=== PATIENT | female | born 1960 | race Caucasian/White ===

== ENCOUNTER 2016-07-17 11:47 | Emergency (ER) | payer SELFPAY ==
[2016-07-17] MEDS ORDERED: Aspirin 325 MG TAB ONE (12:49)
--- NOTE | 2016-07-17 12:56 | RAD ---
CHEST ONE VIEW: History: Chest pain. Comparison: 05-29-15 FINDINGS: Lungs are clear. No pneumothorax or effusion. Cardiac silhouette and mediastinal contours are normal . No acute osseous abnormality. IMPRESSION: No acute cardiopulmonary process. POS: [facility]
[2016-07-17 13:01] LABS: #Basophils 0.1 thou/uL (0.0-0.2); #Eosinphils 0.1 thou/uL (0.0-0.7); #Lymphocytes 2.4 thou/uL (1.20-3.40); #Monocytes 0.4 thou/uL (0.11-0.59); #Neutrophils 3.7 thou/uL (1.40-6.50); %Basophils 1.5 % (0.0-1.0); %Eosinophils 2.1 % (0.0-10.0); %Lymphocytes 35.7 % (21.0-51.0); %Monocytes 5.7 % (0.0-10.0); %Neutrophils 54.9 % (42.0-75.0); Hemoglobin 14.5 g/dL (12.0-16.0); Mean Corpuscular HGB CONC 32.2 g/dL (32.0-36.0); Mean Corpuscular Hemoglobin 29.2 pg (27.0-31.0); Mean Corpuscular Volume 90.7 fl (81.0-99.0); Mean Platelet Volume 12.1 fL (7.4-10.4); Platelet Count 95 thou/uL (130-400); RBC Distribution Width 12.7 % (11.5-14.5); Red Blood Cell (RBC) Count 4.95 mill/uL (4.20-5.40); White Blood Cell (WBC) Count 6.8 thou/uL (4.8-10.8)
[2016-07-17 13:04] LABS: PTT 34.5 SEC (22.9-36.1); Prothrombin Time 13.7 SEC (12.0-14.7)
[2016-07-17 13:05] LABS: D-Dimer Test 0.33 *mcg/mL (0.27-0.43)
[2016-07-17 13:12] LABS: CKMB 0.6 ng/mL (0-6.6); Troponin I Less than 0.010 ng/mL (< 0.028)
[2016-07-17 13:26] LABS: PLT Morphology Comment Appears Decreased
[2016-07-17 13:33] LABS: Anion Gap 20 mmol/L (10-20); BUN (Urea Nitrogen) 12 mg/dL (9.8-20.1); Calc. Creatinine Clearance 0 mL/min (70-130); Calcium 9.4 mg/dL (7.8-10.44); Carbon Dioxide 22 mmol/L (22-29); Chloride 102 mmol/L (98-107); Estimated GFR-MDRD 69; Glucose 100 mg/dL (70-105); Potassium 3.9 mmol/L (3.5-5.1); Sodium 140 mmol/L (136-145)
== END 2016-07-17 14:22 | disposition short-term general hospital (02) ==
LOC: MADERS 11:47
DX: R07.9 Chest pain, unspecified (principal); K21.9 Gastro-esophageal reflux disease without esophagitis; F41.9 Anxiety disorder, unspecified; F32.9 Major depressive disorder, single episode, unspecified; Z79.899 Other long term (current) drug therapy
CPT/HCPCS: 71010; 80048; 82553; 83880; 84484; 85025; 85379; 85610; 85730; 93005

== ENCOUNTER 2017-05-17 09:25 | Emergency (ER) | payer OTHER, SELFPAY ==
--- NOTE | 2017-05-17 10:13 | RAD ---
3 VIEW LEFT ANKLE SERIES: Date: 05/17/17 INDICATION: Fall with ankle pain, injury. FINDINGS: Soft tissue swelling is present. There is a minimally displaced fibular tip fracture. Mortise is inta ct. There is scattered osseous degenerative change. IMPRESSION: 1. Minimal displaced distal fibular fracture. 2. Associated soft tissue swelling is present. POS: [facility]
== END 2017-05-17 10:20 | disposition home or self-care (01) ==
LOC: MADERS 09:25
DX: S82.832A Other fracture of upper and lower end of left fibula, initial encounter for closed fracture (principal); I49.9 Cardiac arrhythmia, unspecified; I44.7 Left bundle-branch block, unspecified; I25.2 Old myocardial infarction; K21.9 Gastro-esophageal reflux disease without esophagitis; F41.9 Anxiety disorder, unspecified; F32.9 Major depressive disorder, single episode, unspecified; Z79.82 Long term (current) use of aspirin; Z79.899 Other long term (current) drug therapy; W17.2XXA Fall into hole, initial encounter

== ENCOUNTER 2017-08-20 10:41 | Emergency (ER) | payer SELFPAY ==
[~2017-08-20 10:41] MED LIST: Sodium Chloride 0.9% 1,000 ML BAG ONE
[2017-08-20 11:41] LABS: #Basophils 0.1 thou/uL (0.0-0.2); #Eosinphils 0.1 thou/uL (0.0-0.7); #Lymphocytes 1.6 thou/uL (1.20-3.40); #Monocytes 0.3 thou/uL (0.11-0.59); #Neutrophils 3.7 thou/uL (1.40-6.50); %Basophils 0.9 % (0.0-1.0); %Eosinophils 2.2 % (0.0-10.0); %Lymphocytes 27.6 % (21.0-51.0); %Monocytes 5.5 % (0.0-10.0); %Neutrophils 63.7 % (42.0-75.0); Hemoglobin 11.9 g/dL (12.0-16.0); Mean Corpuscular HGB CONC 32.5 g/dL (32.0-36.0); Mean Corpuscular Hemoglobin 30.1 pg (27.0-31.0); Mean Corpuscular Volume 92.8 fL (78.0-98.0); Mean Platelet Volume 7.2 fL (7.4-10.4); Platelet Count 153 thou/uL (130-400); RBC Distribution Width 12.1 % (11.5-14.5); Red Blood Cell (RBC) Count 3.94 mill/uL (4.20-5.40); White Blood Cell (WBC) Count 5.8 thou/uL (4.8-10.8)
[2017-08-20 11:44] LABS: INR-International Normal Ratio 0.9; PTT 23.5 SEC (22.9-36.1); Prothrombin Time 12.6 SEC (12.0-14.7)
[2017-08-20 11:54] LABS: ALT (SGPT) 16 U/L (8-55); AST (SGOT) 13 U/L (5-34); Albumin 4.1 g/dL (3.5-5.0); Alkaline Phosphatase 56 U/L (40-150); Anion Gap 17 mmol/L (10-20); BUN (Urea Nitrogen) 19 mg/dL (9.8-20.1); Bilirubin, Total 0.3 mg/dL (0.2-1.2); CK (CPK) 42 U/L (29-168); Calc. Creatinine Clearance 0 mL/min (70-130); Calcium 9.1 mg/dL (7.8-10.44); Carbon Dioxide 22 mmol/L (22-29); Chloride 104 mmol/L (98-107); Estimated GFR-MDRD 73; Globulin 2.6 g/dL (2.4-3.5); Glucose 101 mg/dL (70-105); Potassium 4.2 mmol/L (3.5-5.1); Protein, Total 6.7 g/dL (6.0-8.3); Sodium 139 mmol/L (136-145)
[2017-08-20 11:58] LABS: CKMB 0.5 ng/mL (0-6.6); Troponin I Less than 0.010 ng/mL (< 0.028)
[2017-08-20] MEDS ORDERED: Meclizine HCl 25 MG TAB ONE (12:45)
[2017-08-20] MEDS ORDERED: Ondansetron ODT 4 MG TAB ONE (12:45)
--- NOTE | 2017-08-20 13:21 | RAD ---
AP VIEW OF THE CHEST: INDICATION: History of irregular heartbeat. IMPRESSION: No acute cardiopulmonary abnormality. The examination is not appreciably changed from a comparison d ated 07/17/16. POS: [facility]
--- NOTE | 2017-08-20 14:16 | CT ---
BRAIN CT WITHOUT IV CONTRAST: HISTORY: A 57-year-old female with a history of dizziness for one month with headache. COMPARISON: 05/31/2013 FINDINGS: No focal mass or midline shift. No intraaxial or extraaxial hemorrhage. The sinuses and mastoids ar e clear of acute process. Stable from prior study. IMPRESSION: 1. No significant acute intracranial process. 2. No mass or bleed. 3. Mild atrophy. POS: [facility]
== END 2017-08-20 14:40 | disposition home or self-care (01) ==
LOC: MADERS 10:41
DX: H83.09 Labyrinthitis, unspecified ear (principal); I47.1 Supraventricular tachycardia; I25.10 Atherosclerotic heart disease of native coronary artery without angina pectoris; K21.9 Gastro-esophageal reflux disease without esophagitis; F41.9 Anxiety disorder, unspecified; F32.9 Major depressive disorder, single episode, unspecified; Z79.899 Other long term (current) drug therapy; Z79.1 Long term (current) use of non-steroidal anti-inflammatories (NSAID)
CPT/HCPCS: 36415; 70450; 71045; 80053; 82550; 82553; 83880; 84443; 84484; 85025; 85610; 85730; 93005; 96360; 96361; J7050; Q0162

== ENCOUNTER 2018-02-10 13:34 | Outpatient (CLI) | payer OTHER ==
--- NOTE | 2018-02-10 15:06 | RAD ---
RIGHT KNEE THREE VIEWS: History: Knee pain. FINDINGS: Medial and lateral joint spaces are preserved. There are very mild degenerative changes apparent with minimal spurring from the tibial spines, condyles, and patella. I cannot exclude small joint effusio n with mild fullness seen in the suprapatellar region. IMPRESSION: Very mild degenerative change. Question small joint effusion. POS: [facility]
--- NOTE | 2018-02-10 15:07 | RAD ---
LEFT KNEE THREE VIEWS: History: Knee pain. FINDINGS: Joint spaces are preserved. Mild degenerative changes are noted. Mild spurring from the tibial condyl es. Fullness of the suprapatellar regions suggest small effusion. No fracture or acute abnormality. IMPRESSION: Evidence of mild degenerative change. Question small joint effusion. POS: [facility]
--- NOTE | 2018-02-10 15:54 | RAD ---
FIVE VIEWS LUMBAR SPINE: History: Back pain without history of trauma. FINDINGS: AP, lateral, coned down, flexion and extension views lumbar spine obtained. Images demonstrate 4.5 mm of anterolisthesis of L4 on L5. This does not significantly change on flexi on or extension views. No evidence of acute lumbar spine fractures seen. Disc spaces are well maintained. IMPRESSION: Grade I anterolisthesis of L4 on L5. No acute fractures or bony lesions seen. POS: [facility]
== END 2018-02-10 13:35 | disposition home or self-care (01) ==
LOC: MADRAD 13:34
PROVIDERS: ATTEND Nurse Practitioner Family
DX: M54.5 Low back pain (principal); M25.561 Pain in right knee; M25.562 Pain in left knee; M43.16 Spondylolisthesis, lumbar region; M17.0 Bilateral primary osteoarthritis of knee
CPT/HCPCS: 72110

== ENCOUNTER 2018-04-24 08:22 | Emergency (ER) | payer OTHER ==
[2018-04-24] MEDS ORDERED: Ibuprofen 800 MG TAB ONE (08:53)
[2018-04-24] MEDS ORDERED: Oseltamivir 75 MG CAP ONE (08:53)
--- NOTE | 2018-04-24 09:51 | RAD ---
2 VIEW CHEST: Date: 04/24/18 HISTORY: Fever. COMPARISON: 06/25/14. FINDINGS: The lung erazo appear clear. No infiltrate identified. Heart and mediastinum unremarkable. Vasculatu re normal. IMPRESSION: No acute findings. POS: [facility]
== END 2018-04-24 09:30 | disposition home or self-care (01) ==
LOC: MADERS 08:22
DX: J11.1 Influenza due to unidentified influenza virus with other respiratory manifestations (principal); I47.1 Supraventricular tachycardia; I25.10 Atherosclerotic heart disease of native coronary artery without angina pectoris; K21.9 Gastro-esophageal reflux disease without esophagitis; F41.9 Anxiety disorder, unspecified; Z79.1 Long term (current) use of non-steroidal anti-inflammatories (NSAID); Z79.899 Other long term (current) drug therapy; Z79.51 Long term (current) use of inhaled steroids
CPT/HCPCS: 71046; 93005

== ENCOUNTER 2019-01-08 14:41 | Emergency (ER) | payer OTHER ==
[2019-01-08 15:46] LABS: #Basophils 0.1 thou/uL (0.0-0.2); #Eosinphils 0.2 thou/uL (0.0-0.7); #Lymphocytes 1.7 thou/uL (1.20-3.40); #Monocytes 0.4 thou/uL (0.11-0.59); #Neutrophils 3.6 thou/uL (1.40-6.50); %Basophils 1.6 % (0.0-1.0); %Eosinophils 2.8 % (0.0-10.0); %Monocytes 6.2 % (0.0-10.0); %Neutrophils 60.5 % (42.0-75.0); Hemoglobin 12.1 g/dL (12.0-16.0); Mean Corpuscular HGB CONC 30.7 g/dL (32.0-36.0); Mean Corpuscular Hemoglobin 27.8 pg (27.0-31.0); Mean Corpuscular Volume 90.6 fL (78.0-98.0); Mean Platelet Volume 8.3 fL (7.4-10.4); Platelet Count 202 thou/uL (130-400); RBC Distribution Width 12.6 % (11.5-14.5); Red Blood Cell (RBC) Count 4.36 mill/uL (4.20-5.40); White Blood Cell (WBC) Count 5.9 thou/uL (4.8-10.8)
[2019-01-08 16:00] LABS: ALT (SGPT) 32 U/L (8-55); AST (SGOT) 22 U/L (5-34); Albumin 4.2 g/dL (3.5-5.0); Alkaline Phosphatase 104 U/L (40-110); Anion Gap 15 mmol/L (10-20); BUN (Urea Nitrogen) 11 mg/dL (9.8-20.1); Bilirubin, Total 0.5 mg/dL (0.2-1.2); Calc. Creatinine Clearance 0 mL/min (70-130); Calcium 9.3 mg/dL (7.8-10.44); Carbon Dioxide 29 mmol/L (22-29); Chloride 102 mmol/L (98-107); Estimated GFR-MDRD 63; Globulin 2.7 g/dL (2.4-3.5); Glucose 102 mg/dL (70-105); Protein, Total 6.9 g/dL (6.0-8.3); Sodium 143 mmol/L (136-145)
[2019-01-08 16:01] LABS: Potassium 2.9 mmol/L (3.5-5.1)
[2019-01-08] MEDS ORDERED: Aspirin Chewable 81 MG TAB ONE (16:02)
[2019-01-08] MEDS ORDERED: Potassium Chloride 20 MEQ TAB ONE (16:06)
--- NOTE | 2019-01-08 16:44 | RAD ---
RADIOGRAPH CHEST 2 VIEWS: DATE: 01/08/2019 HISTORY: 58-year-old female with dyspnea FINDINGS: There is no airspace density, pulmonary edema, pleural effusion, pneumothorax, or cardiomegaly. IMPRESSION: No acute cardiopulmonary findings.
== END 2019-01-08 17:04 | disposition home or self-care (01) ==
LOC: MADERS 14:41
DX: E87.6 Hypokalemia (principal); R06.00 Dyspnea, unspecified; I25.10 Atherosclerotic heart disease of native coronary artery without angina pectoris; I49.9 Cardiac arrhythmia, unspecified; I47.1 Supraventricular tachycardia; F41.9 Anxiety disorder, unspecified; F32.9 Major depressive disorder, single episode, unspecified; Z79.899 Other long term (current) drug therapy; Z79.51 Long term (current) use of inhaled steroids; Z79.82 Long term (current) use of aspirin
CPT/HCPCS: 71046; 80053; 84484; 85025; 93005

== ENCOUNTER 2019-06-23 10:00 | Emergency (ER) | payer OTHER ==
[2019-06-23 11:12] LABS: #Basophils 0.1 thou/uL (0.0-0.2); #Eosinphils 0.3 thou/uL (0.0-0.7); #Lymphocytes 1.3 thou/uL (1.20-3.40); #Monocytes 0.5 thou/uL (0.11-0.59); #Neutrophils 5.8 thou/uL (1.40-6.50); %Basophils 1.2 % (0.0-1.0); %Eosinophils 3.3 % (0.0-10.0); %Lymphocytes 16.5 % (21.0-51.0); %Monocytes 5.7 % (0.0-10.0); %Neutrophils 73.3 % (42.0-75.0); Hemoglobin 12.1 g/dL (12.0-16.0); Mean Corpuscular Hemoglobin 29.5 pg (27.0-31.0); Platelet Count 242 thou/uL (130-400); RBC Distribution Width 13.5 % (11.5-14.5); Red Blood Cell (RBC) Count 4.11 mill/uL (4.20-5.40); White Blood Cell (WBC) Count 7.9 thou/uL (4.8-10.8)
[2019-06-23] MEDS ORDERED: Aspirin Chewable 81 MG TAB ONE (11:12)
--- NOTE | 2019-06-23 11:18 | RAD ---
RADIOGRAPH CHEST 1 VIEW: DATE: 06/23/2019 HISTORY: 59-year-old female with chest pain and palpitations FINDINGS: There are no airspace densities, pulmonary edema, pneumothorax, or cardiomegaly. The lateral costophr enic angles are sharp. IMPRESSION: No acute cardiopulmonary findings.
[2019-06-23 11:30] LABS: ALT (SGPT) 172 U/L (8-55); AST (SGOT) 112 U/L (5-34); Albumin 4.1 g/dL (3.5-5.0); Alkaline Phosphatase 185 U/L (40-110); Anion Gap 16 mmol/L (10-20); BUN (Urea Nitrogen) 16 mg/dL (9.8-20.1); Bilirubin, Total 0.4 mg/dL (0.2-1.2); Calc. Creatinine Clearance 0 mL/min (70-130); Calcium 8.8 mg/dL (7.8-10.44); Carbon Dioxide 26 mmol/L (22-29); Chloride 101 mmol/L (98-107); Estimated GFR-MDRD 52; Glucose 154 mg/dL (70-105); Magnesium 1.3 mg/dL (1.6-2.6); Potassium 3.7 mmol/L (3.5-5.1); Protein, Total 7.1 g/dL (6.0-8.3); Sodium 139 mmol/L (136-145)
[2019-06-23] MEDS ORDERED: Magnesium 2 GM/50 ML BAG (IN WATER) ONE (11:56)
[2019-06-23 23:48] LABS: HBCM Index 0.16 S/CO (0-0.79); HBSAg Index 0.15 S/CO (0-0.99); Hep A IgM AB Non-Reactive (NonReactive); Hep B Surf Ag Non-Reactive S/CO (NonReactive); Hep C IgG Ab Non-Reactive (NonReactive); Hep C Index 0.16 S/CO (0-0.79); Hepatitis B Core IgM Abs Non-Reactive (NonReactive)
== END 2019-06-23 13:11 | disposition short-term general hospital (02) ==
LOC: MADERS 10:00
DX: K75.9 Inflammatory liver disease, unspecified (principal); E83.42 Hypomagnesemia; I25.10 Atherosclerotic heart disease of native coronary artery without angina pectoris; K21.9 Gastro-esophageal reflux disease without esophagitis
CPT/HCPCS: 71045; 80053; 80074; 83690; 83735; 83880; 84443; 84484; 85025; 93005; 96365; J3475

== ENCOUNTER 2019-10-02 14:05 | Emergency (ER) | payer OTHER ==
[2019-10-02] MEDS ORDERED: Diazepam 5 MG TAB ONE (14:55)
[2019-10-02] MEDS ORDERED: HYDROcodone/Acetaminophen 5/325 mg Tablet ONE (14:55)
[2019-10-02] MEDS ORDERED: Ketorolac Tromethamine 60 MG/2 ML VIAL ONE (14:56)
== END 2019-10-02 15:19 | disposition home or self-care (01) ==
LOC: MADERS 14:05
DX: M54.42 Lumbago with sciatica, left side (principal); I25.10 Atherosclerotic heart disease of native coronary artery without angina pectoris; K21.9 Gastro-esophageal reflux disease without esophagitis; F32.9 Major depressive disorder, single episode, unspecified; F41.9 Anxiety disorder, unspecified; Z79.899 Other long term (current) drug therapy; Z79.82 Long term (current) use of aspirin
CPT/HCPCS: 96372; 99283; J1885

== ENCOUNTER 2023-04-24 11:01 | Emergency (ER) | payer OTHER ==
[~2023-04-24 11:01] MED LIST changes: +Iopamidol 370 76% 100 ML VIAL ONE; -Sodium Chloride 0.9% 1,000 ML BAG ONE
[2023-04-24] MEDS ORDERED: Ondansetron PF 4 MG/2 ML Vial ONE (11:31)
[2023-04-24] MEDS ORDERED: Pantoprazole 40 MG VIAL ONE (11:32)
[2023-04-24] MEDS ORDERED: Sodium Chloride 0.9% 1,000 ML ONE ×2 (11:32→14:02)
[2023-04-24 12:13] LABS: ALT (SGPT) 34 U/L (8-55); AST (SGOT) 22 U/L (5-34); Albumin 4.5 g/dL (3.4-4.8); Alkaline Phosphatase 176 U/L (40-110); Anion Gap 21 mmol/L (10-20); BUN (Urea Nitrogen) 14 mg/dL (9.8-20.1); Bilirubin, Total 0.4 mg/dL (0.2-1.2); Calc. Creatinine Clearance 0 mL/min (70-130); Calcium 9.4 mg/dL (7.8-10.44); Carbon Dioxide 18 mmol/L (23-31); Chloride 109 mmol/L (98-107); Estimated GFR 56; Globulin 3.1 g/dL (2.4-3.5); Glucose 135 mg/dL (80-115); Lipase 13 U/L (8-78); Potassium 3.5 mmol/L (3.5-5.1); Protein, Total 7.6 g/dL (5.8-8.1); Sodium 144 mmol/L (136-145)
[2023-04-24 12:15] LABS: Band 17 % (5-11); Hematocrit 37.9 % (36.0-47.0); Hemoglobin 12.1 g/dL (12.0-16.0); Hypochromia SLIGHT = 6-15 cells (100X) (0-5/hpf); Lymphocytes 7 % (21-51); MDiff Complete? YES; Mean Corpuscular HGB CONC 31.9 g/dL (32.0-36.0); Mean Corpuscular Hemoglobin 28.6 pg (27.0-31.0); Mean Corpuscular Volume 89.6 fl (78.0-98.0); Mean Platelet Volume 7.9 fL (7.4-10.4); Monocytes 2 % (0-10); Neutrophil 74 % (42-75); Platelet Adequacy Comment Appears Adequate; Platelet Count 268 10x3/uL (130-400); RBC Distribution Width 14.2 % (11.5-14.5); Red Blood Cell (RBC) Count 4.24 mill/uL (4.20-5.40); White Blood Cell (WBC) Count 15.3 10x3/uL (4.8-10.8)
[2023-04-24] MEDS ORDERED: Cefepime 2 GM VIAL ONE (14:41)
[2023-04-24] MEDS ORDERED: Sodium Chloride 0.9% 100 ML ONE (14:41)
[2023-04-24] MEDS ORDERED: metroNIDAZOLE 500 MG (100 mL) BAG ONE (15:08)
[2023-04-24 15:24] LABS: Influenza A by NAA Not Detected (NotDetected); Influenza B by NAA Not Detected (NotDetected); SARS-CoV-2 NAA Rapid Test Not Detected (NotDetected)
[2023-04-24] MEDS ORDERED: Vancomycin 1 GM VIAL ONE (16:20)
[2023-04-24] MEDS ORDERED: Sodium Chloride 0.9% 500 ML ONE (16:20)
[2023-04-24 17:03] LABS: Hemoglobin A1c 5.1 % (4.0-6.0)
== END 2023-04-24 17:44 | disposition short-term general hospital (02) ==
LOC: MADERS 11:01
DX: A09 Infectious gastroenteritis and colitis, unspecified (principal); K20.90 Esophagitis, unspecified without bleeding; I11.0 Hypertensive heart disease with heart failure; I50.9 Heart failure, unspecified; I48.91 Unspecified atrial fibrillation; I25.10 Atherosclerotic heart disease of native coronary artery without angina pectoris; Z79.899 Other long term (current) drug therapy
CPT/HCPCS: 36415; 74177; 80053; 83036; 83605; 83690; 85025; 87040; 96361; 96365; 96367; 96375; C9113; J0692; J2405; J3370; J3490; J7030; J7050; Q9967

== ENCOUNTER 2023-06-24 20:43 | Emergency (ER) | payer OTHER ==
[~2023-06-24 20:43] MED LIST changes: +Sodium Chloride 0.9% 100 ML BAG ONE
[2023-06-24] MEDS ORDERED: Acetaminophen 500 MG TAB ONE (20:55)
[2023-06-24 21:46] LABS: Hematocrit 27.4 % (36.0-47.0); Hemoglobin 8.9 g/dL (12.0-16.0); Lymphocytes 10 % (21-51); MDiff Complete? YES; Mean Corpuscular HGB CONC 32.5 g/dL (32.0-36.0); Mean Corpuscular Hemoglobin 29.1 pg (27.0-31.0); Mean Corpuscular Volume 89.5 fl (78.0-98.0); Mean Platelet Volume 6.9 fL (7.4-10.4); Monocytes 11 % (0-10); Neutrophil 79 % (42-75); Platelet Count 140 10x3/uL (130-400); Red Blood Cell (RBC) Count 3.07 mill/uL (4.20-5.40); White Blood Cell (WBC) Count 4.8 10x3/uL (4.8-10.8)
[2023-06-24 21:47] LABS: Influenza A by NAA Not Detected (NotDetected); Influenza B by NAA Not Detected (NotDetected); SARS-CoV-2 NAA Rapid Test Not Detected (NotDetected)
[2023-06-24 21:57] LABS: ALT (SGPT) 21 U/L (8-55); AST (SGOT) 21 U/L (5-34); Albumin 3.4 g/dL (3.4-4.8); Alkaline Phosphatase 103 U/L (40-110); Anion Gap 14 mmol/L (10-20); BUN (Urea Nitrogen) 9 mg/dL (9.8-20.1); Bilirubin, Total 0.4 mg/dL (0.2-1.2); Calc. Creatinine Clearance 0 mL/min (70-130); Carbon Dioxide 24 mmol/L (23-31); Chloride 104 mmol/L (98-107); Estimated GFR 56; Globulin 2.3 g/dL (2.4-3.5); Glucose 105 mg/dL (80-115); Lipase 11 U/L (8-78); Protein, Total 5.7 g/dL (5.8-8.1); Sodium 140 mmol/L (136-145)
[2023-06-24 22:01] LABS: Calcium 6.9 mg/dL (7.8-10.44); Critical Call Chemistry EMS.CLJ @ 2200; Magnesium 0.7 mg/dL (1.6-2.6); Potassium 2.1 mmol/L (3.5-5.1)
[2023-06-24] MEDS ORDERED: Magnesium 2 GM/50 ML BAG (IN WATER) ONE (22:04)
[2023-06-24] MEDS ORDERED: Calcium Gluc 4.6 MEQ/10 ML (100 MG/ML) ONE (22:44)
[2023-06-24] MEDS ORDERED: Potassium Chloride 20 MEQ TAB ONE (22:54)
== END 2023-06-24 23:47 | disposition short-term general hospital (02) ==
LOC: MADERS 20:43
DX: E87.8 Other disorders of electrolyte and fluid balance, not elsewhere classified (principal); K52.9 Noninfective gastroenteritis and colitis, unspecified; E87.6 Hypokalemia; E83.51 Hypocalcemia; E83.42 Hypomagnesemia; I11.0 Hypertensive heart disease with heart failure; I50.9 Heart failure, unspecified; Z79.899 Other long term (current) drug therapy
CPT/HCPCS: 74177; 80053; 83605; 83690; 83735; 85025; 87040; 93005; 96361; 96365; 96374; J0612; J3475; J3490; Q9967

== ENCOUNTER 2023-12-05 09:50 | Emergency (ER) | payer OTHER ==
[~2023-12-05 09:50] MED LIST changes: -Sodium Chloride 0.9% 100 ML BAG ONE
[2023-12-05] MEDS ORDERED: Dicyclomine 20 MG/2 ML VIAL ONE (10:10)
[2023-12-05] MEDS ORDERED: Sodium Chloride 0.9% 1,000 ML ONE (10:11)
[2023-12-05] MEDS ORDERED: Ondansetron PF 4 MG/2 ML Vial ONE (10:11)
[2023-12-05 10:44] LABS: #Basophils 0.1 thou/uL (0.0-0.2); #Monocytes 0.3 thou/uL (0.11-0.59); #Neutrophils 5.8 thou/uL (1.40-6.50); %Basophils 0.8 % (0.0-1.0); %Eosinophils 0.3 % (0.0-10.0); %Lymphocytes 14.4 % (21.0-51.0); %Monocytes 3.9 % (0.0-10.0); %Neutrophils 80.6 % (42.0-75.0); Hematocrit 34.4 % (36.0-47.0); Hemoglobin 11.1 g/dL (12.0-16.0); Mean Corpuscular HGB CONC 32.2 g/dL (32.0-36.0); Mean Corpuscular Hemoglobin 29.2 pg (27.0-31.0); Mean Corpuscular Volume 90.4 fl (78.0-98.0); Mean Platelet Volume 7.9 fL (7.4-10.4); Platelet Count 248 10x3/uL (130-400); RBC Distribution Width 12.9 % (11.5-14.5); White Blood Cell (WBC) Count 7.2 10x3/uL (4.8-10.8)
[2023-12-05 10:54] LABS: INR-International Normal Ratio 1.1; PTT 25.8 sec (22.9-36.1); Prothrombin Time 14.1 sec (12.0-14.7)
[2023-12-05 11:03] LABS: ALT (SGPT) 13 U/L (8-55); AST (SGOT) 15 U/L (5-34); Albumin 3.5 g/dL (3.4-4.8); Alkaline Phosphatase 96 U/L (40-110); Anion Gap 16 mmol/L (10-20); BUN (Urea Nitrogen) 14 mg/dL (9.8-20.1); Bilirubin, Total 0.3 mg/dL (0.2-1.2); CK (CPK) 64 U/L (29-168); Calc. Creatinine Clearance 0 mL/min (70-130); Calcium 8.9 mg/dL (7.8-10.44); Carbon Dioxide 19 mmol/L (23-31); Chloride 113 mmol/L (98-107); Estimated GFR 74; Globulin 3.1 g/dL (2.4-3.5); Glucose 113 mg/dL (80-115); Lipase 11 U/L (8-78); Magnesium 1.4 mg/dL (1.6-2.6); Potassium 3.3 mmol/L (3.5-5.1); Protein, Total 6.6 g/dL (5.8-8.1); Sodium 145 mmol/L (136-145)
[2023-12-05] MEDS ORDERED: Magnesium 2 GM/50 ML BAG (IN WATER) ONE (11:14)
[2023-12-05] MEDS ORDERED: Potassium Chloride 20 MEQ TAB ONE (11:14)
== END 2023-12-05 12:35 | disposition home or self-care (01) ==
LOC: MADERS 09:50
DX: K52.9 Noninfective gastroenteritis and colitis, unspecified (principal); E87.6 Hypokalemia; E83.42 Hypomagnesemia; I11.0 Hypertensive heart disease with heart failure; I50.9 Heart failure, unspecified
CPT/HCPCS: 36415; 74177; 80053; 82274; 82550; 83605; 83690; 83735; 85025; 85610; 85730; 87040; 87400; 87426; 94760; 96361; 96365; 96372; 96375; J2405; J3475; J7030; Q9967